=== PATIENT | female | born 1990 | race African-American/Black ===

== ENCOUNTER 2020-08-10 23:29 | Observation (INO) | payer OTHER ==
[~2020-08-10] VITALS: Ht 152.4 cm; Wt 88.5 kg
[2020-08-11] MEDS ORDERED: PNV11TAB5 PO (04:27)
[2020-08-11] MEDS ORDERED: FERR325T23 GT (04:29)
[2020-08-11] MEDS ORDERED: FERR-71 PO (04:30)
== END 2020-08-11 04:50 | disposition home or self-care (01) ==
LOC: 8 EST LDRP 23:29
PROVIDERS: ADMIT Obstetrics & Gynecology; ATTEND Obstetrics & Gynecology
DX: O42.92 Full-term premature rupture of membranes, unspecified as to length of time between rupture and onset of labor (principal); Z3A.38 38 weeks gestation of pregnancy
CPT/HCPCS: 59025; 76805; 76818; G0378; 99281